=== PATIENT | female | born 1950 | race Asian ===

== ENCOUNTER 2017-03-09 15:26 | Outpatient (CLI) | payer OTHER | END 2017-03-09 17:51 | disposition home or self-care (01) | LOC: SCA 15:26 | PROVIDERS: ATTEND Internal Medicine | DX: I49.9 Cardiac arrhythmia, unspecified (principal) | CPT/HCPCS: 93005; 93306 ==

== ENCOUNTER 2017-03-10 07:03 | Outpatient (CLI) | payer OTHER ==
[2017-03-10 08:08] LABS: ANION GAP 9 (5-15); CALCIUM 9.7 mg/dL (8.4-11.0); CHLORIDE 104 mmol/L (98-107); GLUCOSE 89 mg/dL (70-99); POTASSIUM 3.6 mmol/L (3.5-5.1); SODIUM SERUM 141 mmol/L (136-145); UREA NITROGEN, BLOOD 16 mg/dL (8-21)
[2017-03-10 08:17] LABS: BASOPHILS # (AUTO) 0.1 K/uL (0.0-0.2); EOSINOPHILS # (AUTO) 0.2 K/uL (0.0-0.4); EOSINOPHILS % (AUTO) 3.6 % (0.0-4.0); HEMOGLOBIN 13.1 g/dL (12.0-16.0); LYMPHOCYTES # (AUTO) 2.6 K/uL (1.0-5.5); LYMPHOCYTES % (AUTO) 41.9 % (20.5-51.5); MEAN CORPUSCULAR HEMOGLOBIN 28 pg (27-31); MEAN CORPUSCULAR HGB CONC 34 % (32-36); MEAN CORPUSCULAR VOLUME 84 fL (79.0-98.0); MONOCYTES # (AUTO) 0.4 K/uL (0.0-1.0); MONOCYTES % (AUTO) 6.7 % (1.7-9.3); NEUTROPHILS % (AUTO) 46.8 % (40.0-70.0); PLATELET COUNT (AUTO) 385 K/uL (130-430); RED BLOOD CELL COUNT(AUTO) 4.63 MIL/uL (4.2-6.2); RED CELL DISTRIBUTION WIDTH 13.1 % (9.0-15.0); WHITE BLOOD COUNT (AUTO) 6.3 K/uL (4.8-10.8)
[2017-03-10 08:24] LABS: GFR AFRICAN AMERICAN 128 mL/min (>90)
[2017-03-10 08:29] LABS: ALANINE AMINOTRANSFERASE 21 U/L (12-78); ASPARTATE AMINOTRANSFERASE 17 U/L (10-37); CREATINE KINASE MB 1.6 ng/mL (0-3.6); THYROID STIMULATING HORMONE 2.32 uIu/mL (0.36-3.74); TOTAL BILIRUBIN 0.5 mg/dL (0.0-1.0); TOTAL PROTEIN, SERUM 7.7 g/dL (6.4-8.3)
[2017-03-10 08:49] LABS: CHOLESTEROL 272 mg/dL (<200); HDL CHOLESTEROL 58 mg/dL (>55); LDL CHOLESTEROL 169 mg/dL (<100); TRIGLYCERIDES 202 mg/dL (30-150)
[2017-03-11 13:09] LABS: FOLATE (FOLIC ACID) 11.1 ng/mL (>3.0)
[2017-03-12 10:40] LABS: HEMOGLOBIN A1C 6.1 % (4.8-5.6)
== END 2017-03-10 21:08 | disposition home or self-care (01) ==
LOC: SLB 07:03
PROVIDERS: ATTEND Internal Medicine
DX: I49.9 Cardiac arrhythmia, unspecified (principal); I07.1 Rheumatic tricuspid insufficiency
CPT/HCPCS: 36415; 80053; 80061; 82306; 82553-TC; 82607; 82746; 83036; 83735-TC; 84443-TC; 84484; 85025

== ENCOUNTER → 2017-03-23 | Outpatient (CLI) | payer OTHER | END | disposition home or self-care (01) | LOC: SCA 08:55 | PROVIDERS: ATTEND Internal Medicine | DX: R07.89 Other chest pain (principal) | CPT/HCPCS: 93017 ==

== ENCOUNTER 2017-10-26 08:27 | Outpatient (CLI) | payer OTHER ==
[2017-10-26 09:32] LABS: BASOPHILS # (AUTO) 0.1 K/uL (0.0-0.2); BASOPHILS % (AUTO) 1.3 % (0.0-2.0); EOSINOPHILS # (AUTO) 0.1 K/uL (0.0-0.4); EOSINOPHILS % (AUTO) 2.6 % (0.0-4.0); HEMATOCRIT 41.7 % (36-48); HEMOGLOBIN 13.6 g/dL (12.0-16.0); LYMPHOCYTES # (AUTO) 1.9 K/uL (1.0-5.5); LYMPHOCYTES % (AUTO) 33.9 % (20.5-51.5); MEAN CORPUSCULAR HEMOGLOBIN 28 pg (27-31); MEAN CORPUSCULAR HGB CONC 33 % (32-36); MEAN CORPUSCULAR VOLUME 84 fL (79.0-98.0); MONOCYTES # (AUTO) 0.4 K/uL (0.0-1.0); NEUTROPHILS # (AUTO) 3.1 K/uL (1.8-7.7); NEUTROPHILS % (AUTO) 55.2 % (40.0-70.0); PLATELET COUNT (AUTO) 427 K/uL (130-430); RED BLOOD CELL COUNT(AUTO) 4.94 MIL/uL (4.2-6.2); RED CELL DISTRIBUTION WIDTH 13.2 % (9.0-15.0); WHITE BLOOD COUNT (AUTO) 5.6 K/uL (4.8-10.8)
[2017-10-26 10:03] LABS: ALBUMIN 4.3 g/dL (3.4-4.8); CALCIUM 10.2 mg/dL (8.4-11.0); CREATININE 0.61 mg/dL (0.55-1.30); POTASSIUM 3.8 mmol/L (3.5-5.1); THYROID STIMULATING HORMONE 1.07 uIu/mL (0.34-4.82); TOTAL BILIRUBIN 0.6 mg/dL (0.0-1.0)
[2017-10-27 11:21] LABS: HEMOGLOBIN A1C 5.8 % (4.8-5.6)
== END 2017-10-26 19:47 | disposition home or self-care (01) ==
LOC: SLB 08:27
PROVIDERS: ATTEND Internal Medicine
DX: E55.9 Vitamin D deficiency, unspecified (principal); E78.5 Hyperlipidemia, unspecified; R73.9 Hyperglycemia, unspecified
CPT/HCPCS: 36415; 80053; 80061; 82306; 82607; 83036; 84443-TC; 85025

== ENCOUNTER 2018-09-12 08:41 | Outpatient (CLI) | payer OTHER ==
[2018-09-12 09:15] LABS: BASOPHILS # (AUTO) 0.1 K/uL (0.0-0.2); BASOPHILS % (AUTO) 1.1 % (0.0-2.0); EOSINOPHILS # (AUTO) 0.1 K/uL (0.0-0.4); EOSINOPHILS % (AUTO) 2.3 % (0.0-4.0); HEMATOCRIT 39.5 % (36-48); HEMOGLOBIN 13.2 g/dL (12.0-16.0); LYMPHOCYTES # (AUTO) 1.9 K/uL (1.0-5.5); MEAN CORPUSCULAR HEMOGLOBIN 28 pg (27-31); MEAN CORPUSCULAR HGB CONC 33 % (32-36); MEAN CORPUSCULAR VOLUME 85 fL (79.0-98.0); MONOCYTES # (AUTO) 0.3 K/uL (0.0-1.0); MONOCYTES % (AUTO) 6.5 % (1.7-9.3); NEUTROPHILS # (AUTO) 2.8 K/uL (1.8-7.7); NEUTROPHILS % (AUTO) 53.1 % (40.0-70.0); PLATELET COUNT (AUTO) 377 K/uL (130-430); RED BLOOD CELL COUNT(AUTO) 4.66 MIL/uL (4.2-6.2); RED CELL DISTRIBUTION WIDTH 13.2 % (9.0-15.0); WHITE BLOOD COUNT (AUTO) 5.2 K/uL (4.8-10.8)
[2018-09-12 09:31] LABS: CALCIUM 9.5 mg/dL (8.4-11.0); CREATININE 0.6 mg/dL (0.55-1.30); POTASSIUM 3.9 mmol/L (3.5-5.1)
[2018-09-12 09:47] LABS: TOTAL BILIRUBIN 0.5 mg/dL (0.0-1.0)
[2018-09-12 09:48] LABS: THYROID STIMULATING HORMONE 1.24 uIu/mL (0.36-3.74); URIC ACID 3.5 mg/dL (2.4-7.0)
[2018-09-12 11:04] LABS: ERYTHROCYTE SEDIMENTATION RATE 23 MM/HR (0-20)
== END 2018-09-12 19:36 | disposition home or self-care (01) ==
LOC: SLB 08:41
PROVIDERS: ATTEND Internal Medicine
DX: Z00.01 Encounter for general adult medical examination with abnormal findings (principal); E55.9 Vitamin D deficiency, unspecified; E78.5 Hyperlipidemia, unspecified; R73.9 Hyperglycemia, unspecified
CPT/HCPCS: 36415; 80053; 80061; 82306; 82607; 83036; 84443-TC; 84550-TC; 85025; 85651-TC

== ENCOUNTER 2021-04-16 09:04 | Outpatient (CLI) | payer OTHER ==
[2021-04-16 09:44] LABS: BASOPHILS # (AUTO) 0.1 K/uL (0.0-0.2); BASOPHILS % (AUTO) 1.3 % (0.0-2.0); EOSINOPHILS # (AUTO) 0.1 K/uL (0.0-0.4); EOSINOPHILS % (AUTO) 2.4 % (0.0-4.0); HEMATOCRIT 38.2 % (36-48); LYMPHOCYTES # (AUTO) 2.2 K/uL (1.0-5.5); LYMPHOCYTES % (AUTO) 37.8 % (20.5-51.5); MEAN CORPUSCULAR HEMOGLOBIN 29 pg (27-31); MEAN CORPUSCULAR HGB CONC 34 % (32-36); MEAN CORPUSCULAR VOLUME 86 fL (79.0-98.0); MONOCYTES # (AUTO) 0.5 K/uL (0.0-1.0); MONOCYTES % (AUTO) 7.7 % (1.7-9.3); NEUTROPHILS % (AUTO) 50.8 % (40.0-70.0); PLATELET COUNT (AUTO) 347 K/uL (130-430); RED BLOOD CELL COUNT(AUTO) 4.43 MIL/uL (4.2-6.2); WHITE BLOOD COUNT (AUTO) 5.9 K/uL (4.8-10.8)
[2021-04-16 10:07] LABS: ALANINE AMINOTRANSFERASE 22 U/L (12-78); ANION GAP 7 (5-15); ASPARTATE AMINOTRANSFERASE 21 U/L (10-37); BILIRUBIN,URINE NEGATIVE (NEGATIVE); BLOOD, URINE NEGATIVE (NEGATIVE); CALCIUM 9.3 mg/dL (8.4-11.0); CHLORIDE 103 mmol/L (98-107); CLARITY/URINE CLEAR (CLEAR); COLOR,URINE YELLOW (YELLOW); CREATININE 0.69 mg/dL (0.55-1.30); GLUCOSE 95 mg/dL (70-99); GLUCOSE,URINE NEGATIVE (NEGATIVE); KETONES,URINE NEGATIVE (NEGATIVE); LEUKOCYTE ESTERASE ,URINE NEGATIVE (NEGATIVE); NITRITE, URINE NEGATIVE (NEGATIVE); PH,URINE 6.5 (5.0-8.0); PROTEIN URINE NEGATIVE (NEGATIVE); SODIUM SERUM 140 mmol/L (136-145); THYROID STIMULATING HORMONE 1.63 uIu/mL (0.36-3.74); TOTAL BILIRUBIN 0.6 mg/dL (0.0-1.0); UREA NITROGEN, BLOOD 16 mg/dL (8-21); UROBILINOGEN,URINE 0.2 (0.2-1.0)
[2021-04-16 10:40] LABS: ERYTHROCYTE SEDIMENTATION RATE 23 MM/HR (0-20)
[2021-04-16 11:32] LABS: CHOLESTEROL 270 mg/dL (<200); HDL CHOLESTEROL 67 mg/dL (>55); LDL CHOLESTEROL 162 mg/dL (<100); TRIGLYCERIDES 193 mg/dL (30-150)
== END 2021-04-16 19:36 | disposition home or self-care (01) ==
LOC: SLB 09:04
PROVIDERS: ATTEND Internal Medicine
DX: M43.16 Spondylolisthesis, lumbar region (principal); M89.38 Hypertrophy of bone, other site; M51.36 Other intervertebral disc degeneration, lumbar region; M51.27 Other intervertebral disc displacement, lumbosacral region; E78.5 Hyperlipidemia, unspecified; E56.9 Vitamin deficiency, unspecified; R73.9 Hyperglycemia, unspecified
CPT/HCPCS: 36415; 72148; 80053; 80061; 81003; 82306; 82607; 83036; 84443; 85025; 85651-TC

== ENCOUNTER 2021-12-28 07:43 | Outpatient (CLI) | payer OTHER ==
[2021-12-28 09:11] LABS: BILIRUBIN,URINE NEGATIVE (NEGATIVE); BLOOD, URINE NEGATIVE (NEGATIVE); CLARITY/URINE CLEAR (CLEAR); COLOR,URINE YELLOW (YELLOW); GLUCOSE,URINE NEGATIVE (NEGATIVE); KETONES,URINE NEGATIVE (NEGATIVE); LEUKOCYTE ESTERASE ,URINE NEGATIVE (NEGATIVE); NITRITE, URINE NEGATIVE (NEGATIVE); PROTEIN URINE NEGATIVE (NEGATIVE); UROBILINOGEN,URINE 0.2 (0.2-1.0)
[2021-12-28 09:40] LABS: BASOPHILS # (AUTO) 0.1 K/uL (0.0-0.2); BASOPHILS % (AUTO) 1.1 % (0.0-2.0); EOSINOPHILS # (AUTO) 0.1 K/uL (0.0-0.4); EOSINOPHILS % (AUTO) 1.4 % (0.0-4.0); HEMATOCRIT 39.9 % (36-48); LYMPHOCYTES # (AUTO) 2.1 K/uL (1.0-5.5); LYMPHOCYTES % (AUTO) 35.7 % (20.5-51.5); MEAN CORPUSCULAR HEMOGLOBIN 28 pg (27-31); MEAN CORPUSCULAR HGB CONC 33 % (32-36); MEAN CORPUSCULAR VOLUME 86 fL (79.0-98.0); MONOCYTES # (AUTO) 0.4 K/uL (0.0-1.0); MONOCYTES % (AUTO) 7.5 % (1.7-9.3); NEUTROPHILS # (AUTO) 3.2 K/uL (1.8-7.7); NEUTROPHILS % (AUTO) 54.3 % (40.0-70.0); PLATELET COUNT (AUTO) 375 K/uL (130-430); RED BLOOD CELL COUNT(AUTO) 4.66 MIL/uL (4.2-6.2); RED CELL DISTRIBUTION WIDTH 13.8 % (9.0-15.0); WHITE BLOOD COUNT (AUTO) 5.8 K/uL (4.8-10.8)
[2021-12-28 09:41] LABS: ALANINE AMINOTRANSFERASE 23 U/L (12-78); ALBUMIN 3.9 g/dL (3.4-4.8); ANION GAP 9 (5-15); ASPARTATE AMINOTRANSFERASE 18 U/L (10-37); CALCIUM 9.9 mg/dL (8.4-11.0); CHLORIDE 102 mmol/L (98-107); CREATININE 0.74 mg/dL (0.55-1.30); GLUCOSE 90 mg/dL (70-99); POTASSIUM 3.6 mmol/L (3.5-5.1); SODIUM SERUM 139 mmol/L (136-145); THYROID STIMULATING HORMONE 1.39 uIu/mL (0.36-3.74); TOTAL BILIRUBIN 0.6 mg/dL (0.0-1.0); UREA NITROGEN, BLOOD 21 mg/dL (8-21)
[2021-12-28 10:00] LABS: CHOLESTEROL 316 mg/dL (<200); HDL CHOLESTEROL 73 mg/dL (>55); LDL CHOLESTEROL 183 mg/dL (<100); TRIGLYCERIDES 188 mg/dL (30-150)
[2021-12-29 06:06] LABS: HEMOGLOBIN A1C 5.6 % (4.8-5.6)
== END 2021-12-28 20:05 | disposition home or self-care (01) ==
LOC: SLB 07:43
PROVIDERS: ATTEND Internal Medicine
DX: E78.5 Hyperlipidemia, unspecified (principal); R73.9 Hyperglycemia, unspecified; E56.9 Vitamin deficiency, unspecified; E55.9 Vitamin D deficiency, unspecified
CPT/HCPCS: 36415; 80053; 80061; 81003; 82306; 82607; 83036; 84443; 85025

== ENCOUNTER 2022-01-14 09:10 | Outpatient (CLI) | payer OTHER | END 2022-01-14 19:34 | disposition home or self-care (01) | LOC: SMI 09:10 | PROVIDERS: ATTEND Internal Medicine | DX: G93.89 Other specified disorders of brain (principal); R42 Dizziness and giddiness | CPT/HCPCS: 70551; 93880 ==